=== PATIENT | male | born 1955 | race Caucasian/White ===

== ENCOUNTER 2017-06-29 07:18 | Outpatient (CLI) | payer OTHER ==
[~2017-06-29 07:18] MED LIST: CATAFLAM50 MG PO
== END 2017-06-29 13:46 | disposition home or self-care (01) ==
LOC: RAD 07:18
DX: N20.0 Calculus of kidney (principal)

== ENCOUNTER → 2017-06-30 | Outpatient (CLI) | payer OTHER | END | disposition home or self-care (01) | LOC: LAB 07:43 | DX: N20.1 Calculus of ureter (principal) ==

== ENCOUNTER → 2017-07-02 | Outpatient (CLI) | payer OTHER | END | disposition home or self-care (01) | LOC: LAB 08:04 | DX: N20.1 Calculus of ureter (principal) ==

== ENCOUNTER 2018-02-18 07:26 | Emergency (ER) | payer OTHER ==
[~2018-02-18] VITALS: Ht 180.3 cm; Wt 106.6 kg
== END 2018-02-18 12:18 | disposition home or self-care (01) ==
LOC: ER 07:26
DX: S50.11XA Contusion of right forearm, initial encounter (principal); S40.011A Contusion of right shoulder, initial encounter; W18.39XA Other fall on same level, initial encounter; Y93.89 Activity, other specified; Y92.89 Other specified places as the place of occurrence of the external cause; Y99.8 Other external cause status

== ENCOUNTER → 2018-03-17 | Outpatient (CLI) | payer OTHER | END | disposition home or self-care (01) | LOC: MRI 14:11 | DX: M75.101 Unspecified rotator cuff tear or rupture of right shoulder, not specified as traumatic (principal) | CPT/HCPCS: 73221 ==

== ENCOUNTER 2018-04-19 06:00 | Day surgery (SDC) | payer OTHER ==
[2018-04-19] MEDS ORDERED: OXYC1TAB9 PO (10:30)
[2018-04-19] MEDS ORDERED: CEFADROXIL500 MG PO (10:31)
[2018-04-20] MEDS ORDERED: PERCOCET 10-321 EACH (19:21)
== END 2018-04-19 15:45 | disposition home or self-care (01) ==
LOC: CIR.AMB 06:00
DX: M75.121 Complete rotator cuff tear or rupture of right shoulder, not specified as traumatic (principal); M19.011 Primary osteoarthritis, right shoulder; S46.011A Strain of muscle(s) and tendon(s) of the rotator cuff of right shoulder, initial encounter; S46.211A Strain of muscle, fascia and tendon of other parts of biceps, right arm, initial encounter

== ENCOUNTER → 2018-04-20 | Emergency (ER) | payer OTHER ==
[~2018-04-20] VITALS: Ht 180.3 cm; Wt 112.0 kg
[~2018-04-20] MED LIST changes: +CEFADROXIL500 MG PO; +OXYC1TAB9 PO; +PERCOCET 10-321 EACH
== END | disposition home or self-care (01) ==
LOC: ER 19:10
DX: M62.838 Other muscle spasm (principal); R51 Headache; M54.2 Cervicalgia; Z98.890 Other specified postprocedural states

== ENCOUNTER → 2018-04-26 07:39 | Outpatient (CLI) | payer OTHER | END | disposition home or self-care (01) | LOC: LAB 07:39 | DX: E11.9 Type 2 diabetes mellitus without complications (principal) ==

== ENCOUNTER 2018-05-04 06:27 | Outpatient (CLI) | payer OTHER | END 2018-05-04 06:37 | disposition home or self-care (01) | LOC: LAB 06:27 | DX: R31.0 Gross hematuria (principal) ==

== ENCOUNTER 2018-05-04 07:36 | Outpatient (CLI) | payer OTHER | END 2018-05-04 07:40 | disposition home or self-care (01) | LOC: TOM 07:36 | DX: R31.0 Gross hematuria (principal) ==

== ENCOUNTER 2018-05-19 11:22 | Day surgery (SDC) | payer OTHER ==
[~2018-05-19 11:22] MED LIST changes: +TAMS0.4C PO
== END 2018-05-19 22:15 | disposition home or self-care (01) ==
LOC: CIR.AMB 11:22
DX: C67.2 Malignant neoplasm of lateral wall of bladder (principal); N32.3 Diverticulum of bladder

== ENCOUNTER 2018-05-20 03:15 | Emergency (ER) | payer OTHER ==
[~2018-05-20] VITALS: Ht 180.3 cm; Wt 106.6 kg
== END 2018-05-20 07:52 | disposition home or self-care (01) ==
LOC: ER 03:15
DX: R33.8 Other retention of urine (principal)

== ENCOUNTER 2018-05-28 08:51 | Outpatient (CLI) | payer OTHER | END 2018-05-28 08:55 | disposition home or self-care (01) | LOC: LAB 08:51 | DX: C67.9 Malignant neoplasm of bladder, unspecified (principal); C67.8 Malignant neoplasm of overlapping sites of bladder ==

== ENCOUNTER 2018-06-07 08:08 | Outpatient (CLI) | payer OTHER | END 2018-06-07 08:51 | disposition home or self-care (01) | LOC: NUCLEAR 08:08 | DX: C67.8 Malignant neoplasm of overlapping sites of bladder (principal) | CPT/HCPCS: 78816; A9552 ==

== ENCOUNTER → 2018-06-10 12:22 | Outpatient (CLI) | payer OTHER | END | disposition home or self-care (01) | LOC: LAB 12:22 | DX: C67.9 Malignant neoplasm of bladder, unspecified (principal); R97.20 Elevated prostate specific antigen [PSA]; Z00.01 Encounter for general adult medical examination with abnormal findings ==

== ENCOUNTER 2018-06-14 09:02 | Outpatient (CLI) | payer OTHER | END 2018-06-14 09:05 | disposition home or self-care (01) | LOC: LAB 09:02 | DX: C67.9 Malignant neoplasm of bladder, unspecified (principal); R97.20 Elevated prostate specific antigen [PSA] ==

== ENCOUNTER 2018-07-19 07:15 | Outpatient (CLI) | payer OTHER ==
[~2018-07-19 07:15] MED LIST changes: +DICLOFENAC POTA50 MG PO
== END 2018-07-19 07:18 | disposition home or self-care (01) ==
LOC: LAB 07:15
DX: C67.9 Malignant neoplasm of bladder, unspecified (principal)

== ENCOUNTER 2018-07-21 10:18 | Outpatient (CLI) | payer OTHER | END 2018-07-21 12:44 | disposition home or self-care (01) | LOC: LAB 10:18 | DX: J11.1 Influenza due to unidentified influenza virus with other respiratory manifestations (principal) ==

== ENCOUNTER 2018-07-23 09:27 | Outpatient (CLI) | payer OTHER | END 2018-07-23 09:34 | disposition home or self-care (01) | LOC: LAB 09:27 | DX: C67.9 Malignant neoplasm of bladder, unspecified (principal) ==

== ENCOUNTER 2018-07-30 06:19 | Outpatient (CLI) | payer OTHER | END 2018-07-30 06:24 | disposition home or self-care (01) | LOC: LAB 06:19 | DX: C67.8 Malignant neoplasm of overlapping sites of bladder (principal) ==

== ENCOUNTER 2018-08-27 06:16 | Outpatient (CLI) | payer OTHER | END 2018-08-27 06:22 | disposition home or self-care (01) | LOC: LAB 06:16 | DX: C67.8 Malignant neoplasm of overlapping sites of bladder (principal) ==

== ENCOUNTER 2018-09-08 08:16 | Outpatient (CLI) | payer OTHER | END 2018-09-08 08:31 | disposition home or self-care (01) | LOC: MRI 08:16 | DX: R31.0 Gross hematuria (principal); C67.9 Malignant neoplasm of bladder, unspecified | CPT/HCPCS: 72197 ==

== ENCOUNTER 2018-09-29 05:45 | Day surgery (SDC) | payer OTHER ==
[~2018-09-29 05:45] MED LIST changes: +FINASTERIDE5 MG PO
[2018-10-05] MEDS ORDERED: FINASTERIDE5 MG PO (13:12)
[2018-10-05] MEDS ORDERED: LOSARTAN POTASS50 MG PO (13:12)
== END 2018-09-29 15:15 | disposition home or self-care (01) ==
LOC: CIR.AMB 05:45
DX: N32.3 Diverticulum of bladder (principal)

== ENCOUNTER 2018-10-06 05:55 | Inpatient (IN) | payer OTHER ==
[~2018-10-06] VITALS: Ht 180.3 cm; Wt 104.3 kg
[~2018-10-06 05:55] MED LIST changes: +LOSARTAN POTASS50 MG PO
== END 2018-10-08 07:30 | disposition home or self-care (01) | DRG 714 ==
LOC: CIR.AMB 05:55 → O/R 10:10 → CIR.AMB 10:48 → SURG 11:07 → CIR.AMB 18:16 → SURG 10-08 07:30
PROVIDERS: ADMIT Urology
PROC: 0VT08ZZ Resection of Prostate, Via Natural or Artificial Opening Endoscopic (ICD-10-PCS; principal; 2018-10-06 08:15)
DX: N40.1 Benign prostatic hyperplasia with lower urinary tract symptoms (principal); C67.2 Malignant neoplasm of lateral wall of bladder; R33.8 Other retention of urine

== ENCOUNTER 2018-10-21 06:27 | Outpatient (CLI) | payer OTHER | END 2018-10-21 06:34 | disposition home or self-care (01) | LOC: LAB 06:27 | DX: D50.8 Other iron deficiency anemias (principal); E03.8 Other specified hypothyroidism; E78.2 Mixed hyperlipidemia; I11.9 Hypertensive heart disease without heart failure; E56.8 Deficiency of other vitamins; N39.0 Urinary tract infection, site not specified; Z12.11 Encounter for screening for malignant neoplasm of colon; E55.9 Vitamin D deficiency, unspecified; N19 Unspecified kidney failure; E11.9 Type 2 diabetes mellitus without complications; R80.8 Other proteinuria; C18.0 Malignant neoplasm of cecum; K92.1 Melena ==

== ENCOUNTER 2018-11-10 06:42 | Outpatient (CLI) | payer OTHER | END 2018-11-10 06:47 | disposition home or self-care (01) | LOC: LAB 06:42 | DX: N30.00 Acute cystitis without hematuria (principal) ==

== ENCOUNTER → 2018-12-01 06:39 | Outpatient (CLI) | payer OTHER | END | disposition home or self-care (01) | LOC: LAB 06:39 | DX: N30.00 Acute cystitis without hematuria (principal) ==

== ENCOUNTER 2018-12-01 08:01 | Outpatient (CLI) | payer OTHER | END 2018-12-01 08:32 | disposition home or self-care (01) | LOC: NUCLEAR 08:01 | DX: I11.9 Hypertensive heart disease without heart failure (principal) ==

== ENCOUNTER 2018-12-24 06:12 | Outpatient (CLI) | payer OTHER | END 2018-12-24 06:19 | disposition home or self-care (01) | LOC: LAB 06:12 | DX: E03.8 Other specified hypothyroidism (principal); D50.8 Other iron deficiency anemias; E78.2 Mixed hyperlipidemia; I11.9 Hypertensive heart disease without heart failure; E56.8 Deficiency of other vitamins; N39.0 Urinary tract infection, site not specified; Z12.11 Encounter for screening for malignant neoplasm of colon; E55.9 Vitamin D deficiency, unspecified; N19 Unspecified kidney failure; E11.9 Type 2 diabetes mellitus without complications; R80.8 Other proteinuria; C18.0 Malignant neoplasm of cecum; K92.1 Melena; C67.9 Malignant neoplasm of bladder, unspecified ==

== ENCOUNTER → 2018-12-24 08:22 | Outpatient (CLI) | payer OTHER ==
[~2018-12-24 08:22] MED LIST changes: +VITAMIN D310000 UNIT PO
== END | disposition home or self-care (01) ==
LOC: RAD 08:22
DX: C67.9 Malignant neoplasm of bladder, unspecified (principal)

== ENCOUNTER 2019-01-03 08:00 | Inpatient (IN) | payer OTHER ==
[~2019-01-03 08:00] MED LIST changes: -VITAMIN D310000 UNIT PO
[2019-01-03] MEDS ORDERED: VITAMIN D310000 UNIT PO (10:54)
== END 2019-01-07 08:20 | disposition home or self-care (01) | DRG 657 ==
LOC: ADM 08:00 → CIR.AMB 01-05 08:00 → EDSTATUS 01-05 08:00 → SURH 01-05 08:00 → CIR.AMB 01-05 09:00 → SURH 01-05 09:17 → O/R 01-05 09:17 → SURH 01-05 20:32
PROVIDERS: ADMIT Urology
PROC: 07TC4ZZ Resection of Pelvis Lymphatic, Percutaneous Endoscopic Approach (ICD-10-PCS; 2019-01-05)
PROC: 0T778DZ Dilation of Left Ureter with Intraluminal Device, Via Natural or Artificial Opening Endoscopic (ICD-10-PCS; 2019-01-05)
PROC: 0TBB8ZZ Excision of Bladder, Via Natural or Artificial Opening Endoscopic (ICD-10-PCS; 2019-01-05)
PROC: 0TT14ZZ Resection of Left Kidney, Percutaneous Endoscopic Approach (ICD-10-PCS; principal; 2019-01-05 09:00)
PROC: 0TT74ZZ Resection of Left Ureter, Percutaneous Endoscopic Approach (ICD-10-PCS; 2019-01-05 09:00)
DX: C67.8 Malignant neoplasm of overlapping sites of bladder (principal); N13.2 Hydronephrosis with renal and ureteral calculous obstruction; R31.0 Gross hematuria; R39.12 Poor urinary stream; N32.3 Diverticulum of bladder; I10 Essential (primary) hypertension

== ENCOUNTER 2019-01-13 07:33 | Outpatient (CLI) | payer OTHER | END 2019-01-13 07:38 | disposition home or self-care (01) | LOC: LAB 07:33 | DX: D62 Acute posthemorrhagic anemia (principal) ==

== ENCOUNTER → 2019-01-13 | Outpatient (CLI) | payer OTHER ==
[~2019-01-13] MED LIST changes: +VITAMIN D310000 UNIT PO
== END | disposition home or self-care (01) ==
LOC: RX STUDY 08:15
DX: N32.3 Diverticulum of bladder (principal)

== ENCOUNTER 2019-01-20 07:06 | Outpatient (CLI) | payer OTHER | END 2019-01-20 14:13 | disposition home or self-care (01) | LOC: LAB 07:06 | DX: N30.00 Acute cystitis without hematuria (principal) ==

== ENCOUNTER 2019-01-24 09:54 | Outpatient (CLI) | payer OTHER | END 2019-01-24 09:56 | disposition home or self-care (01) | LOC: RX STUDY 09:54 | DX: R39.89 Other symptoms and signs involving the genitourinary system (principal) ==

== ENCOUNTER → 2019-01-28 06:56 | Outpatient (CLI) | payer OTHER | END | disposition home or self-care (01) | LOC: LAB 06:56 | DX: N30.00 Acute cystitis without hematuria (principal) ==

== ENCOUNTER 2019-02-17 11:25 | Outpatient (CLI) | payer OTHER | END 2019-02-17 15:00 | disposition home or self-care (01) | LOC: LAB 11:25 | DX: N30.00 Acute cystitis without hematuria (principal) ==

== ENCOUNTER 2019-03-04 06:16 | Emergency (ER) | payer OTHER ==
[~2019-03-04] VITALS: Ht 180.3 cm; Wt 97.1 kg
[2019-03-04] MEDS ORDERED: REGLAN (06:39)
== END 2019-03-04 20:06 | disposition home or self-care (01) ==
LOC: ER 06:16
DX: R51 Headache (principal); D72.828 Other elevated white blood cell count; R11.0 Nausea

== ENCOUNTER 2019-03-10 06:38 | Outpatient (CLI) | payer OTHER ==
[~2019-03-10 06:38] MED LIST changes: +REGLAN
== END 2019-03-10 06:43 | disposition home or self-care (01) ==
LOC: LAB 06:38
DX: N30.00 Acute cystitis without hematuria (principal)

== ENCOUNTER 2019-03-10 07:22 | Outpatient (CLI) | payer OTHER | END 2019-03-10 07:24 | disposition home or self-care (01) | LOC: SONOGRAMA 07:22 | DX: C67.9 Malignant neoplasm of bladder, unspecified (principal) ==

== ENCOUNTER 2019-05-20 08:38 | Outpatient (CLI) | payer OTHER | END 2019-05-20 08:50 | disposition home or self-care (01) | LOC: LAB 08:38 | DX: D50.8 Other iron deficiency anemias (principal); E03.8 Other specified hypothyroidism; E78.2 Mixed hyperlipidemia; I11.9 Hypertensive heart disease without heart failure; E56.8 Deficiency of other vitamins; N39.0 Urinary tract infection, site not specified; Z12.11 Encounter for screening for malignant neoplasm of colon; E55.9 Vitamin D deficiency, unspecified; N19 Unspecified kidney failure; E11.9 Type 2 diabetes mellitus without complications; R80.8 Other proteinuria; C18.0 Malignant neoplasm of cecum; K92.1 Melena ==

== ENCOUNTER 2019-06-03 07:34 | Outpatient (CLI) | payer OTHER | END 2019-06-03 07:38 | disposition home or self-care (01) | LOC: SONOGRAMA 07:34 → MAMO-SONO 09:15 | DX: N20.0 Calculus of kidney (principal) ==

== ENCOUNTER 2019-06-15 06:41 | Outpatient (CLI) | payer OTHER | END 2019-06-15 06:45 | disposition home or self-care (01) | LOC: LAB 06:41 | DX: C67.8 Malignant neoplasm of overlapping sites of bladder (principal) ==

== ENCOUNTER 2019-10-03 09:13 | Outpatient (CLI) | payer OTHER | END 2019-10-03 09:36 | disposition home or self-care (01) | LOC: NUCLEAR 09:13 | DX: C67.8 Malignant neoplasm of overlapping sites of bladder (principal) | CPT/HCPCS: 78816; A9552 ==

== ENCOUNTER 2019-10-07 07:40 | Outpatient (CLI) | payer OTHER | END 2019-10-07 07:46 | disposition home or self-care (01) | LOC: LAB 07:40 | DX: C67.9 Malignant neoplasm of bladder, unspecified (principal) ==

== ENCOUNTER → 2019-10-10 14:06 | Outpatient (CLI) | payer OTHER | END | disposition home or self-care (01) | LOC: LAB 14:06 | DX: N30.00 Acute cystitis without hematuria (principal) ==

== ENCOUNTER 2019-11-04 08:01 | Outpatient (CLI) | payer OTHER | END 2019-11-04 14:22 | disposition home or self-care (01) | LOC: LAB 08:01 | PROVIDERS: ATTEND Urology | DX: N30.00 Acute cystitis without hematuria (principal) ==

== ENCOUNTER → 2020-01-17 06:19 | Outpatient (CLI) | payer OTHER | END | disposition home or self-care (01) | LOC: LAB 06:19 | PROVIDERS: ATTEND Internal Medicine Infectious Disease | DX: N39.0 Urinary tract infection, site not specified (principal) ==

== ENCOUNTER 2020-01-17 07:07 | Outpatient (CLI) | payer OTHER | END 2020-01-17 07:20 | disposition home or self-care (01) | LOC: SONOGRAMA 07:07 → MAMO-SONO 07:45 | PROVIDERS: ATTEND Urology | DX: N39.0 Urinary tract infection, site not specified (principal); C67.9 Malignant neoplasm of bladder, unspecified ==

== ENCOUNTER 2020-06-21 14:15 | Outpatient (CLI) | payer OTHER | END 2020-06-21 14:19 | disposition HB | LOC: RAD 14:15 | PROVIDERS: ATTEND Internal Medicine Cardiovascular Disease | DX: I10 Essential (primary) hypertension (principal) ==

== ENCOUNTER 2020-06-26 07:33 | Outpatient (CLI) | payer OTHER | END 2020-06-26 07:38 | disposition home or self-care (01) | LOC: LAB 07:33 | PROVIDERS: ATTEND Internal Medicine Cardiovascular Disease | DX: I10 Essential (primary) hypertension (principal) ==

== ENCOUNTER 2020-07-23 06:34 | Outpatient (CLI) | payer OTHER | END 2020-07-23 06:42 | disposition home or self-care (01) | LOC: LAB 06:34 | PROVIDERS: ATTEND Urology | DX: N30.00 Acute cystitis without hematuria (principal) ==

== ENCOUNTER 2020-09-28 06:35 | Outpatient (CLI) | payer OTHER | END 2020-09-28 06:39 | disposition home or self-care (01) | LOC: LAB 06:35 | PROVIDERS: ATTEND Internal Medicine Cardiovascular Disease | DX: E78.2 Mixed hyperlipidemia (principal); E11.9 Type 2 diabetes mellitus without complications; I10 Essential (primary) hypertension; E55.9 Vitamin D deficiency, unspecified ==

== ENCOUNTER 2021-01-22 06:18 | Outpatient (CLI) | payer OTHER | END 2021-01-22 15:00 | disposition home or self-care (01) | LOC: LAB 06:18 | PROVIDERS: ATTEND Urology | DX: R97.21 Rising PSA following treatment for malignant neoplasm of prostate (principal) ==

== ENCOUNTER 2021-01-29 08:00 | Outpatient (CLI) | payer OTHER | END 2021-01-29 08:30 | disposition home or self-care (01) | LOC: PPH VACUNA 08:00 | DX: Z23 Encounter for immunization (principal) ==

== ENCOUNTER 2021-02-13 07:31 | Outpatient (CLI) | payer OTHER | END 2021-02-13 07:41 | disposition home or self-care (01) | LOC: TOM 07:31 | PROVIDERS: ATTEND Urology | DX: K76.0 Fatty (change of) liver, not elsewhere classified (principal); N20.0 Calculus of kidney; C67.9 Malignant neoplasm of bladder, unspecified ==

== ENCOUNTER 2021-08-06 05:10 | Day surgery (SDC) | payer OTHER | END 2021-08-06 15:20 | disposition home or self-care (01) | LOC: CIR.AMB 05:10 | PROVIDERS: ATTEND Specialist | DX: K40.90 Unilateral inguinal hernia, without obstruction or gangrene, not specified as recurrent (principal); Z85.51 Personal history of malignant neoplasm of bladder; E11.9 Type 2 diabetes mellitus without complications; I10 Essential (primary) hypertension ==

== ENCOUNTER 2021-09-25 08:00 | Outpatient (CLI) | payer OTHER | END 2021-09-25 08:30 | disposition home or self-care (01) | LOC: PPH VACUNA 08:00 | PROVIDERS: ATTEND Emergency Medicine Pediatric Emergency Medicine | DX: Z23 Encounter for immunization (principal) ==

== ENCOUNTER 2021-10-24 07:42 | Outpatient (CLI) | payer OTHER | END 2021-10-24 07:43 | disposition home or self-care (01) | LOC: LAB 07:42 | PROVIDERS: ATTEND Internal Medicine Geriatric Medicine | DX: D50.9 Iron deficiency anemia, unspecified (principal); E03.9 Hypothyroidism, unspecified; E78.2 Mixed hyperlipidemia; I11.9 Hypertensive heart disease without heart failure; E56.8 Deficiency of other vitamins; N39.0 Urinary tract infection, site not specified; Z12.11 Encounter for screening for malignant neoplasm of colon; R19.5 Other fecal abnormalities; E55.9 Vitamin D deficiency, unspecified; N19 Unspecified kidney failure; E11.9 Type 2 diabetes mellitus without complications ==

== ENCOUNTER 2022-02-06 07:05 | Outpatient (CLI) | payer OTHER | END 2022-02-06 13:56 | disposition home or self-care (01) | LOC: LAB 07:05 | PROVIDERS: ATTEND Internal Medicine Geriatric Medicine | DX: C67.9 Malignant neoplasm of bladder, unspecified (principal); D50.9 Iron deficiency anemia, unspecified; E03.9 Hypothyroidism, unspecified; E78.2 Mixed hyperlipidemia; I11.9 Hypertensive heart disease without heart failure; E56.8 Deficiency of other vitamins; N39.0 Urinary tract infection, site not specified; Z12.11 Encounter for screening for malignant neoplasm of colon; R19.5 Other fecal abnormalities; N19 Unspecified kidney failure; E55.9 Vitamin D deficiency, unspecified; E11.9 Type 2 diabetes mellitus without complications; R80.9 Proteinuria, unspecified ==

== ENCOUNTER 2022-03-11 06:40 | Outpatient (CLI) | payer OTHER | END 2022-03-11 09:38 | disposition home or self-care (01) | LOC: LAB 06:40 | PROVIDERS: ATTEND Urology | DX: C61 Malignant neoplasm of prostate (principal) ==

== ENCOUNTER 2022-05-13 10:07 | Outpatient (CLI) | payer OTHER | END 2022-05-13 10:17 | disposition home or self-care (01) | LOC: PPH VACUNA 10:07 | PROVIDERS: ATTEND Emergency Medicine Pediatric Emergency Medicine | DX: Z23 Encounter for immunization (principal) ==

== ENCOUNTER 2023-05-13 07:38 | Outpatient (CLI) | payer OTHER ==
[2023-05-13 08:35] LABS: URINE APPEARANCE Clear; URINE BILIRRUBIN Negative (NEGATIVE); URINE BLOOD Small; URINE COLOR Yellow; URINE GLUCOSE Negative (NEGATIVE); URINE LEUKOCYTE Negative; URINE NITRATE Negative; URINE PROTEIN Negative (NEGATIVE); URINE UROBILINOGEN 0.2 E.U./dl
[2023-05-13 08:37] LABS: URINE BACTERIA 7.5 uL (0.0-1933); URINE RBC 28.1 uL (0.0-20.8); URINE WBC 8.8 uL (0.0-23.2)
== END 2023-05-13 14:29 | disposition home or self-care (01) ==
LOC: LAB 07:38
PROVIDERS: ATTEND Urology
DX: R97.21 Rising PSA following treatment for malignant neoplasm of prostate (principal)

== ENCOUNTER → 2024-05-04 06:21 | Outpatient (CLI) | payer OTHER ==
[2024-05-04 07:22] LABS: PH,URINE 5.5 (5.0-8.0); URINE APPEARANCE Clear; URINE BILIRRUBIN Negative (NEGATIVE); URINE BLOOD Small; URINE COLOR Yellow; URINE GLUCOSE Negative (NEGATIVE); URINE KETONE Negative (NEGATIVE); URINE LEUKOCYTE Negative; URINE NITRATE Negative; URINE PROTEIN 30 (NEGATIVE)
[2024-05-04 07:31] LABS: URINE BACTERIA 17.6 uL (0.0-1933); URINE EPITHELIAL CELLS 3.5 uL (0.0-38.8); URINE RBC 27.3 uL (0.0-20.8); URINE WBC 20.8 uL (0.0-23.2)
== END | disposition home or self-care (01) ==
LOC: LAB 06:21
PROVIDERS: ATTEND Urology
DX: R97.21 Rising PSA following treatment for malignant neoplasm of prostate (principal)

== ENCOUNTER 2024-05-04 07:08 | Outpatient (CLI) | payer OTHER | END 2024-05-04 07:18 | disposition home or self-care (01) | LOC: TOM 07:08 | PROVIDERS: ATTEND Urology | DX: C67.9 Malignant neoplasm of bladder, unspecified (principal) ==

== ENCOUNTER 2024-09-15 06:05 | Outpatient (CLI) | payer OTHER ==
[2024-09-15 07:11] LABS: HEMATOCRIT 47.6 % (39.0-48.0); HEMOGLOBIN 16.1 g/dL (13-16.00); MEAN CELL VOLUME 89.1 fL (80.0-100.00); MEAN CORPUSCULAR HEMOGLOBIN 30.3 pg (27.00-32.0); RED BLOOD COUNT 5.34 M/uL (4.00-6.00); RED CELL DISTRIBUTION WIDTH 14.8 % (11.5-14.5)
[2024-09-15 07:13] LABS: PLATELET COUNT 142 K/uL (150-450)
[2024-09-15 07:25] LABS: PH,URINE 5.5 (5.0-8.0); URINE APPEARANCE Clear; URINE BILIRRUBIN Negative (NEGATIVE); URINE BLOOD Small; URINE COLOR Yellow; URINE GLUCOSE Negative (NEGATIVE); URINE KETONE Negative (NEGATIVE); URINE LEUKOCYTE Trace; URINE NITRATE Negative; URINE PROTEIN 30 (NEGATIVE); URINE UROBILINOGEN 0.2 E.U./dl
[2024-09-15 07:26] LABS: URINE BACTERIA 20.8 uL (0.0-1933); URINE EPITHELIAL CELLS 3.6 uL (0.0-38.8); URINE RBC 23.2 uL (0.0-20.8); URINE WBC 19.9 uL (0.0-23.2)
[2024-09-15 07:28] LABS: URINE CAST 0.14 uL (0.0-1.40)
[2024-09-15 07:48] LABS: BILIRUBIN TOTAL 0.38 mg/dL (0.3-1.2); CHOL HDL RATIO 4.5 (0-5.0); CREATININE SERUM 1.24 mg/dL (0.70-1.30); GFR 57.97; GLOBULINA 3.5 G/DL (2.4-3.5); POTASSIUM 4.03 mEq/L (3.5-5.1); TOTAL PROTEIN 7.5 gm/dL (6.4-8.2); TSH 2.07 uIU/mL (0.358-3.74)
[2024-09-15 10:32] LABS: ob NEGATIVE (NEGATIVE)
== END 2024-09-15 06:06 | disposition home or self-care (01) ==
LOC: LAB 06:05
PROVIDERS: ATTEND Internal Medicine Geriatric Medicine
DX: D50.9 Iron deficiency anemia, unspecified (principal); E03.9 Hypothyroidism, unspecified; E78.2 Mixed hyperlipidemia; I11.9 Hypertensive heart disease without heart failure; E56.8 Deficiency of other vitamins; N39.0 Urinary tract infection, site not specified; Z12.11 Encounter for screening for malignant neoplasm of colon; R19.5 Other fecal abnormalities; E55.9 Vitamin D deficiency, unspecified; N19 Unspecified kidney failure; E11.9 Type 2 diabetes mellitus without complications; R80.9 Proteinuria, unspecified; C18.8 Malignant neoplasm of overlapping sites of colon; K92.1 Melena; Z12.5 Encounter for screening for malignant neoplasm of prostate; R06.02 Shortness of breath

== ENCOUNTER 2024-09-15 07:17 | Outpatient (CLI) | payer OTHER | END 2024-09-15 07:20 | disposition home or self-care (01) | LOC: NUCLEAR 07:17 | PROVIDERS: ATTEND Internal Medicine Geriatric Medicine | DX: I51.7 Cardiomegaly (principal); I42.9 Cardiomyopathy, unspecified; I42.8 Other cardiomyopathies; I38 Endocarditis, valve unspecified ==

== ENCOUNTER 2024-12-19 07:25 | Outpatient (CLI) | payer OTHER | END 2024-12-19 07:26 | disposition home or self-care (01) | LOC: NUCLEAR 07:25 | PROVIDERS: ATTEND Internal Medicine | DX: R07.89 Other chest pain (principal) ==

== ENCOUNTER → 2025-02-07 08:24 | Outpatient (CLI) | payer OTHER ==
[2025-02-07 09:08] LABS: BASO % 0.4 % (0.1-1.2); EOS # 0.04 (0.04-0.54); EOS % 0.6 % (0.7-7.0); LYMPH # 1.20 (1.18-3.74); LYMPH % 16.6 % (19.3-53.1); MEAN PLATELET VOLUME 12.50 fl (9.4-12.4); MONO # 0.60 (0.24-0.82); MONO % 8.3 % (4.7-12.5); NEUT # 5.35 (1.56-6.13); NEUT % 73.7 % (34.0-71.1); RED CELL DISTRIBUTION WIDTH 13.8 % (11.6-14.4)
[2025-02-07 09:14] LABS: URINE APPEARANCE Clear; URINE BILIRRUBIN Negative (NEGATIVE); URINE BLOOD Small; URINE COLOR Yellow; URINE GLUCOSE Negative (NEGATIVE); URINE KETONE Trace (NEGATIVE); URINE LEUKOCYTE Negative; URINE NITRATE Negative; URINE PROTEIN Trace (NEGATIVE); URINE UROBILINOGEN 0.2 E.U./dl
[2025-02-07 09:18] LABS: URINE BACTERIA 17.9 uL (0.0-1933); URINE EPITHELIAL CELLS 8.9 uL (0.0-38.8); URINE RBC 26.3 uL (0.0-20.8); URINE WBC 13.2 uL (0.0-23.2)
[2025-02-07 09:43] LABS: URINE CAST 0.00 uL (0.0-1.40)
[2025-02-07 09:58] LABS: ALT/SGPT 21.0 U/L (12-78); AST/SGOT 11.0 U/L (15-37); BILIRUBIN TOTAL 0.5 mg/dL (0.3-1.2); BUN CREA RATIO 16.0 (7.0-25.0); CHOL HDL RATIO 3.7 (0-5.0); CREATININE SERUM 1.39 mg/dL (0.70-1.30); GFR 50.81; GLOBULINA 3.4 G/DL (2.4-3.5); GLUCOSE FASTING 135.0 mg/dL (65-100); HDL 36.0 mg/dl (40-60); LDL 72.0 mg/dl (0-130); OSMOLALITY SERUM 292.0 MOSM/KG (275-295); TSH 2.0 uIU/mL (0.358-3.74); VLDL 26.0 (0-39)
== END | disposition home or self-care (01) ==
LOC: LAB 08:24
PROVIDERS: ATTEND Internal Medicine Geriatric Medicine
DX: D50.9 Iron deficiency anemia, unspecified (principal); E03.9 Hypothyroidism, unspecified; E78.2 Mixed hyperlipidemia; I11.9 Hypertensive heart disease without heart failure; E56.8 Deficiency of other vitamins; N39.0 Urinary tract infection, site not specified; Z12.11 Encounter for screening for malignant neoplasm of colon; R19.5 Other fecal abnormalities; E55.9 Vitamin D deficiency, unspecified; N19 Unspecified kidney failure; E11.9 Type 2 diabetes mellitus without complications; R80.9 Proteinuria, unspecified; C18.9 Malignant neoplasm of colon, unspecified; K92.1 Melena; Z12.5 Encounter for screening for malignant neoplasm of prostate

== ENCOUNTER 2025-03-08 06:25 | Outpatient (CLI) | payer OTHER ==
[2025-03-08 07:25] LABS: BASO % 0.7 % (0.1-1.2); EOS # 0.08 (0.04-0.54); EOS % 1.2 % (0.7-7.0); LYMPH # 1.17 (1.18-3.74); LYMPH % 17.1 % (19.3-53.1); MEAN PLATELET VOLUME 12.90 fl (9.4-12.4); MONO # 0.58 (0.24-0.82); MONO % 8.5 % (4.7-12.5); NEUT # 4.96 (1.56-6.13); NEUT % 72.2 % (34.0-71.1); RED CELL DISTRIBUTION WIDTH 13.8 % (11.6-14.4)
[2025-03-08 08:10] LABS: URINE APPEARANCE Cloudy; URINE BILIRRUBIN Negative (NEGATIVE); URINE BLOOD Small; URINE COLOR Yellow; URINE GLUCOSE Negative (NEGATIVE); URINE KETONE Negative (NEGATIVE); URINE LEUKOCYTE Trace; URINE NITRATE Negative; URINE PROTEIN Negative (NEGATIVE); URINE UROBILINOGEN 0.2 E.U./dl
[2025-03-08 08:11] LABS: URINE EPITHELIAL CELLS 2.9 uL (0.0-38.8); URINE RBC 18.4 uL (0.0-20.8); URINE WBC 19.5 uL (0.0-23.2)
[2025-03-08 08:22] LABS: CREATININE URINE RANDOM 165.0 MG/DL (30-125)
[2025-03-08 08:35] LABS: URINE BACTERIA 3.5 uL (0.0-1933); URINE CAST 0.00 uL (0.0-1.40)
[2025-03-08 08:43] LABS: ALT/SGPT 25.0 U/L (12-78); AST/SGOT 17.0 U/L (15-37); BILIRUBIN TOTAL 0.47 mg/dL (0.3-1.2); BUN CREA RATIO 17.0 (7.0-25.0); CHOL HDL RATIO 2.9 (0-5.0); CREATININE SERUM 1.26 mg/dL (0.70-1.30); GFR 56.91; GLOBULINA 3.4 G/DL (2.4-3.5); GLUCOSE FASTING 119.0 mg/dL (65-100); HDL 35.0 mg/dl (40-60); LDL 48.0 mg/dl (0-130); OSMOLALITY SERUM 289.0 MOSM/KG (275-295); VLDL 19.0 (0-39)
== END 2025-03-08 06:34 | disposition home or self-care (01) ==
LOC: LAB 06:25
PROVIDERS: ATTEND Internal Medicine
DX: M83.1 Senile osteomalacia (principal); I12.0 Hypertensive chronic kidney disease with stage 5 chronic kidney disease or end stage renal disease

== ENCOUNTER 2025-03-08 07:11 | Outpatient (CLI) | payer OTHER | END 2025-03-08 07:20 | disposition home or self-care (01) | LOC: SONOGRAMA 07:11 | PROVIDERS: ATTEND Internal Medicine | DX: N18.31 Chronic kidney disease, stage 3a (principal) ==